=== PATIENT | female | born 1935 | race Caucasian/White ===

== ENCOUNTER 2018-11-19 13:37 | Outpatient (CLI) | payer MEDICARE ==
--- NOTE | 2018-11-19 16:37 | ULT ---
BILATERAL LOWER EXTREMITY VENOUS DOPPLER ULTRASOUND: Date: 11/19/18 HISTORY: Bilateral lower extremity edema. History of deep venous thrombosis on the left and superficial thromb us on the right less than a year ago. TECHNIQUE: Lopez scale ultrasound with color flow and spectral Doppler imaging of the deep venous systems of the lower extremities was performed bilaterally. FINDINGS: There is absence of compression with partial flow due to nonocclusive thrombosis in the right mid and distal femoral vein, and popliteal vein, trifurcation, as well as the right peroneal vein. There is good flow, compression, and augmentation noted in the deep veins of the left lower extremity . IMPRESSION: 1. Nonocclusive deep venous thrombosis of the right lower extremity. 2. No evidence of deep venous thrombosis in the left lower extremity. Results given to Dr. Amandeep Robbins at 1435 hours by the draw hand, Kierra Rodriguez. CODE CR. POS: OFF
== END 2018-11-19 13:38 | disposition home or self-care (01) ==
LOC: NAV ULT 13:37
PROVIDERS: ATTEND Internal Medicine
DX: I82.4Z1 Acute embolism and thrombosis of unspecified deep veins of right distal lower extremity (principal)
CPT/HCPCS: 93970

== ENCOUNTER 2019-01-06 12:23 | Outpatient (CLI) | payer MEDICARE ==
--- NOTE | 2019-01-06 14:07 | ULT ---
RIGHT LOWER EXTREMITY VENOUS DOPPLER: 01/06/19 HISTORY: Recurrent deep venous thrombosis. COMPARISON: Venous ultrasound from October 2018. Real time blair scale, color Doppler and spectral analysis right lower extremity venous system was per formed. The common femoral, femoral, proximal portions of the greater saphenous and deep femoral vein s as well as a popliteal and posterior tibial veins were interrogated. There is partial occlusion thrombus in the popliteal vein. The remainder of the veins appear patent. There is superficial thrombus within the superficial veins of the calf. IMPRESSION: 1. Partially occlusive deep venous thrombosis of popliteal vein. 2. Superficial thrombophlebitis of the superficial calf veins. 3. The ordering physician is notified via the technologist. POS: HOME
== END 2019-01-06 12:24 | disposition home or self-care (01) ==
LOC: NAV ULT 12:23
PROVIDERS: ATTEND Internal Medicine
DX: I82.431 Acute embolism and thrombosis of right popliteal vein (principal)

== ENCOUNTER 2019-02-15 10:47 | Emergency (ER) | payer MEDICARE ==
[~2019-02-15 10:47] MED LIST: Iopamidol 370 76% 100 ML VIAL ONE
[2019-02-15 11:44] LABS: #Eosinphils 0.1 thou/uL (0.0-0.7); #Lymphocytes 0.9 thou/uL (1.20-3.40); #Monocytes 0.9 thou/uL (0.11-0.59); %Basophils 0.3 % (0.0-1.0); %Eosinophils 0.8 % (0.0-10.0); %Monocytes 11.2 % (0.0-10.0); %Neutrophils 76.8 % (42.0-75.0); Hemoglobin 11.8 g/dL (12.0-16.0); Mean Corpuscular HGB CONC 33.8 g/dL (32.0-36.0); Mean Corpuscular Hemoglobin 26.7 pg (27.0-31.0); Mean Platelet Volume 7.1 fL (7.4-10.4); Platelet Count 198 thou/uL (130-400); RBC Distribution Width 14.1 % (11.5-14.5); White Blood Cell (WBC) Count 7.8 thou/uL (4.8-10.8)
[2019-02-15 11:59] LABS: Bilirubin Negative (Negative); Blood, Urine Small (Negative); Clarity Clear (Clear); Glucose, Urine (Dipstick) Negative (Negative); Leukocyte Small (Negative); Nitrite Negative (Negative); Protein, Urine (Dipstick) Trace mg/dL (Neg-Trace)
[2019-02-15 12:04] LABS: ALT (SGPT) 13 U/L (8-55); AST (SGOT) 17 U/L (5-34); Albumin 4.2 g/dL (3.4-4.8); Alkaline Phosphatase 51 U/L (40-150); Anion Gap 17 mmol/L (10-20); BUN (Urea Nitrogen) 17 mg/dL (9.8-20.1); Bilirubin, Total 1.8 mg/dL (0.2-1.2); CK (CPK) 60 U/L (29-168); Calc. Creatinine Clearance 0 mL/min (70-130); Calcium 9.6 mg/dL (7.8-10.44); Carbon Dioxide 24 mmol/L (23-31); Chloride 95 mmol/L (98-107); Estimated GFR-MDRD 50; Globulin 3.2 g/dL (2.4-3.5); Glucose 114 mg/dL (83-110); Lipase 16 U/L (8-78); Protein, Total 7.4 g/dL (6.0-8.3); Sodium 133 mmol/L (136-145)
[2019-02-15 12:09] LABS: Bacteria/HPF 3+ HPF (None Seen); Other Microscopic Description NO; WBC/HPF 21-50 HPF (0-3)
--- NOTE | 2019-02-15 12:19 | RAD ---
PORTABLE CHEST 1 VIEW: Date: 02/15/19 Time: 1136 hours HISTORY: Nausea and vomiting. FINDINGS/IMPRESSION: The heart is enlarged. There is mild elevation of the right hemidiaphragm. No lobar consolidation, pn eumothoraces, hilaria pulmonary edema, or pleural effusions are seen. POS: T[facility]
[2019-02-15 12:23] LABS: Potassium 2.9 mmol/L (3.5-5.1)
--- NOTE | 2019-02-15 13:06 | ULT ---
EXAM: US Gallbladder RUQ CLINICAL HISTORY: Nausea. Vomiting. Fever.. COMPARISON: None. FINDINGS: Pancreas: Majority of the pancreas is obscured by bowel gas. There is a 1.4 x 1.3 x 1.4 cm hypoechoi c focus adjacent to the head of the pancreas. Exact location and etiology is difficult to assess. Liver:Normal echotexture. No hepatic masses or intrahepatic biliary dilatation. The contour of the he patic margin is maintained. Right hepatic lobe measures 14.3 cm. Portal vein: Not assessed Gallbladder: Multiple echogenic foci within the gallbladder compatible with gallstones. Gallbladder w all is not thickened. No pericholecystic fluid. Villa's sign:Negative Bile ducts: Common bile duct diameter 0.6 cm Right kidney: No hydronephrosis. Right kidney measures 10.2 cm cm in length. IMPRESSION: 1. Sonographic evidence of cholelithiasis without sonographic evidence of cholecystitis. 2. Hypoechoic focus adjacent to the head of pancreas, incompletely evaluated. Dedicated pancreas mass protocol CT is CODE T
--- NOTE | 2019-02-15 14:45 | CT ---
Exam: Abdomen CT with and without contrast HISTORY: Mass in the pancreas noted on ultrasound performed earlier today COMPARISON: None TECHNIQUE: Abdomen CT is performed with and without contrast following urogram protocol. Coronal refo rmatted images are submitted for interpretation FINDINGS: Lung bases: Opacity in the right lower lobe may represent scar or atelectasis. Liver: Appropriate enhancement. No enhancing masses. Spleen: Appropriate enhancement Pancreas: Enhancing 1.2 x 1.3 cm mass in the junction of the head and the body of the pancreas, corre sponding to ultrasound finding. Findings are worrisome for a pancreatic neoplasm. Consider GI consultation for possible endoscopic ultrasound. Adrenal glands: Symmetric enhancement Lymph nodes: No gastrohepatic, retrocrural or periportal lymphadenopathy Portal vein: Patent Gallbladder: Multiple gallstones. No CT evidence of cholecystitis Kidneys: Symmetric enhancement of the kidneys. No evidence of obstructive uropathy visualized interna l and extrarenal collecting systems Mesentery: No mass, nephropathy, free air or free fluid Alimentary canal: Limited evaluation due to lack of oral contrast administration. No evidence of kendall l obstruction. The ileocecal junction is normal. Normal caliber appendix. Scattered fecal material in a nondistended/nondilated colon. Abdominal wall: Ventral abdominal wall hernia at the level of the umbilicus containing mesenteric fat is noted Osseous structures: No lytic or blastic lesions in the osseous structures IMPRESSION: Enhancing mass in the junction of the head and body of the pancreas, corresponding to recent ultrasou nd finding. Neoplastic lesion is favored until proven otherwise. Consider GI consultation for possible endoscopic ultrasound.
[2019-02-15] MEDS ORDERED: Potassium Chloride 20 MEQ TAB ONE (15:00)
[2019-02-15] MEDS ORDERED: Cipro 250 MG TAB ONE (15:38)
== END 2019-02-15 15:55 | disposition home or self-care (01) ==
LOC: NAV ERS 10:47
DX: N39.0 Urinary tract infection, site not specified (principal); K86.9 Disease of pancreas, unspecified; R11.2 Nausea with vomiting, unspecified; Z86.718 Personal history of other venous thrombosis and embolism; E03.9 Hypothyroidism, unspecified; Z87.891 Personal history of nicotine dependence; Z79.899 Other long term (current) drug therapy; Z79.01 Long term (current) use of anticoagulants
CPT/HCPCS: 36415; 51701; 71045; 74170; 76705; 80053; 81003; 81015; 82550; 83690; 84484; 85025; 87077; 87086; 87186; 93005; A4353; Q9967

== ENCOUNTER 2020-04-25 11:16 | Outpatient (CLI) | payer MEDICARE ==
--- NOTE | 2020-04-25 11:54 | CT ---
EXAM: CT Upper Ext Rt WO Con DATE: 04/25/2020 11:25 AM INDICATION: 84-year-old female with right arm injury COMPARISON: None. FINDING: There is diffuse osteopenia. No definite displaced fracture is demonstrated. There is moder ate AC joint osteoarthrosis. There is a small focus of ossification seen along the posterior lateral margin of the glenoid measuring 6.5 mm no acute fracture seen involving the glenoid or visual ized scapula. No displaced right-sided rib fracture seen involving the visualized right chest wall. The visualized right lung is clear. No lymphadenopathy is evident. IMPRESSION: 1. No displaced fracture demonstrated. 2. Moderate AC joint osteoarthrosis. 3. Small focus of ossification seen on the posterior lateral margin of the glenoid may reflect a labr al ossicle or a focus of heterotopic ossification within the adjacent glenohumeral joint capsule. Small intra-articular body could have a similar appearance.
== END 2020-04-25 11:17 | disposition home or self-care (01) ==
LOC: NAV CT 11:16
PROVIDERS: ATTEND Internal Medicine
DX: S49.91XA Unspecified injury of right shoulder and upper arm, initial encounter (principal); M19.011 Primary osteoarthritis, right shoulder

== ENCOUNTER 2020-09-25 09:12 | Outpatient (CLI) | payer MEDICARE | END 2020-09-25 09:13 | disposition home or self-care (01) | LOC: NAV RAD 09:12 | PROVIDERS: ATTEND Internal Medicine | DX: M17.12 Unilateral primary osteoarthritis, left knee (principal) ==

== ENCOUNTER 2020-11-08 11:41 | Outpatient (CLI) | payer MEDICARE | END 2020-11-08 11:42 | disposition home or self-care (01) | LOC: NAV RAD 11:41 | PROVIDERS: ATTEND Internal Medicine | DX: J40 Bronchitis, not specified as acute or chronic (principal); J44.9 Chronic obstructive pulmonary disease, unspecified; J98.4 Other disorders of lung | CPT/HCPCS: 71046 ==

== ENCOUNTER 2023-03-04 21:35 | Emergency (ER) | payer MEDICARE, OTHER ==
[2023-03-04 22:51] LABS: #Neutrophils 8.9 thou/uL (1.40-6.50); %Basophils 0.3 % (0.0-1.0); %Eosinophils 0.1 % (0.0-10.0); %Lymphocytes 7.1 % (21.0-51.0); %Monocytes 2.4 % (0.0-10.0); %Neutrophils 90.1 % (42.0-75.0); Hematocrit 38.4 % (36.0-47.0); Hemoglobin 12.5 g/dL (12.0-16.0); Mean Corpuscular HGB CONC 32.5 g/dL (32.0-36.0); Mean Corpuscular Hemoglobin 26.8 pg (27.0-31.0); Mean Corpuscular Volume 82.6 fl (78.0-98.0); Mean Platelet Volume 7.5 fL (7.4-10.4); Platelet Count 177 10x3/uL (130-400); RBC Distribution Width 13.9 % (11.5-14.5); Red Blood Cell (RBC) Count 4.64 mill/uL (4.20-5.40); White Blood Cell (WBC) Count 9.9 10x3/uL (4.8-10.8)
[2023-03-04] MEDS ORDERED: Ondansetron PF 4 MG/2 ML Vial ONE (22:51)
[2023-03-04] MEDS ORDERED: Morphine 4 MG/ML VIAL ONE (22:51)
[2023-03-04 22:52] LABS: #Lymphocytes 0.7 thou/uL (1.20-3.40); #Monocytes 0.2 thou/uL (0.11-0.59)
[2023-03-04 22:53] LABS: INR-International Normal Ratio 1.9; Prothrombin Time 22.6 sec (12.0-14.7)
[2023-03-04 22:54] LABS: PTT 41.6 sec (22.9-36.1)
[2023-03-04 23:02] LABS: Sodium 137 mmol/L (136-145)
[2023-03-04 23:03] LABS: ALT (SGPT) 19 U/L (8-55); AST (SGOT) 26 U/L (5-34); Albumin 4.5 g/dL (3.4-4.8); Alkaline Phosphatase 48 U/L (40-110); BUN (Urea Nitrogen) 19 mg/dL (9.8-20.1); Calc. Creatinine Clearance 0 mL/min (70-130); Calcium 9.7 mg/dL (7.6-10.4); Carbon Dioxide 26 mmol/L (23-31); Chloride 97 mmol/L (98-107); Estimated GFR 54; Glucose 147 mg/dL (83-110); Lipase 22 U/L (8-78); Potassium 2.8 mmol/L (3.5-5.1); Protein, Total 7.5 g/dL (5.8-8.1)
[2023-03-04 23:35] LABS: Bilirubin Negative (Negative); Blood, Urine Negative (Negative); Clarity Clear (Clear); Glucose, Urine (Dipstick) Negative (Negative); Ketone, Urine 15 mg/dL (Negative); Leukocyte Negative (Negative); Nitrite Negative (Negative); Protein, Urine (Dipstick) 30 mg/dL (Neg-Trace); Urobilinogen 0.2 mg/dL (Less than 2); pH, Urine 7.5 (5.0-9.0)
[2023-03-04 23:36] LABS: Bacteria/HPF Rare-Few HPF (None Seen); CAUTI Indications for Culture Pelvic or flank pain; RBC/HPF None Seen HPF (0-3); WBC/HPF None Seen HPF (0-3)
[2023-03-04 23:37] LABS: Urine Culture Reflex No No
[2023-03-05 00:13] LABS: Anion Gap 17 mmol/L (10-20)
[2023-03-05] MEDS ORDERED: Morphine 4 MG/ML VIAL ONE (00:23)
[2023-03-05] MEDS ORDERED: Potassium Chloride 20 MEQ/100 ML PREMIX BAG ONE (01:10)
[2023-03-05] MEDS ORDERED: Dextrose 5 %-0.45 % NaCl 1,000 ML ONE (01:10)
== END 2023-03-05 02:50 | disposition short-term general hospital (02) ==
LOC: NAV ERS 21:35
DX: K46.9 Unspecified abdominal hernia without obstruction or gangrene (principal); N83.202 Unspecified ovarian cyst, left side; K86.9 Disease of pancreas, unspecified; E03.9 Hypothyroidism, unspecified; M19.90 Unspecified osteoarthritis, unspecified site; H40.9 Unspecified glaucoma; Z87.891 Personal history of nicotine dependence; Z79.01 Long term (current) use of anticoagulants; Z79.82 Long term (current) use of aspirin; Z79.899 Other long term (current) drug therapy; Z86.718 Personal history of other venous thrombosis and embolism
CPT/HCPCS: 51701; 74177; 80053; 81001; 83605; 83690; 85025; 85610; 85730; 96374; 96375; 96376; J2270; J2405; J3480; J7042; Q9967

== ENCOUNTER 2023-04-04 11:37 | Outpatient (CLI) | payer OTHER ==
[2023-04-04 12:47] LABS: Follow-up Chemistry Comp? YES; Follow-up Result - Chemistry REPORT FAXED
== END 2023-04-04 11:38 | disposition home or self-care (01) ==
LOC: NAV LAB 11:37
PROVIDERS: ATTEND Family Medicine
DX: I10 Essential (primary) hypertension (principal)
CPT/HCPCS: 36415; 83880

== ENCOUNTER 2023-04-11 09:56 | Emergency (ER) | payer OTHER ==
[2023-04-11] MEDS ORDERED: Ondansetron PF 4 MG/2 ML Vial ONE (10:21)
[2023-04-11] MEDS ORDERED: Sodium Chloride 0.9% 1,000 ML ONE (10:21)
[2023-04-11] MEDS ORDERED: Morphine 4 MG/ML VIAL ONE (10:21)
[2023-04-11 10:41] LABS: #Eosinphils 0.1 thou/uL (0.0-0.7); #Lymphocytes 1.3 thou/uL (1.20-3.40); #Monocytes 0.3 thou/uL (0.11-0.59); #Neutrophils 3.4 thou/uL (1.40-6.50); %Basophils 0.8 % (0.0-1.0); %Eosinophils 1.4 % (0.0-10.0); %Lymphocytes 24.7 % (21.0-51.0); %Monocytes 6.1 % (0.0-10.0); %Neutrophils 66.9 % (42.0-75.0); Hematocrit 37.9 % (36.0-47.0); Hemoglobin 12.4 g/dL (12.0-16.0); Mean Corpuscular HGB CONC 32.7 g/dL (32.0-36.0); Mean Corpuscular Hemoglobin 27.9 pg (27.0-31.0); Mean Corpuscular Volume 85.2 fl (78.0-98.0); Mean Platelet Volume 8.2 fL (7.4-10.4); Platelet Count 147 10x3/uL (130-400); RBC Distribution Width 14.1 % (11.5-14.5); Red Blood Cell (RBC) Count 4.45 mill/uL (4.20-5.40); White Blood Cell (WBC) Count 5.1 10x3/uL (4.8-10.8)
[2023-04-11 10:52] LABS: INR-International Normal Ratio 1.2; Prothrombin Time 16.1 sec (12.0-14.7)
[2023-04-11 10:53] LABS: PTT 35.9 sec (22.9-36.1)
[2023-04-11 11:01] LABS: ALT (SGPT) 16 U/L (8-55); AST (SGOT) 20 U/L (5-34); Albumin 4.6 g/dL (3.4-4.8); Alkaline Phosphatase 52 U/L (40-110); Anion Gap 17 mmol/L (10-20); BUN (Urea Nitrogen) 23 mg/dL (9.8-20.1); Bilirubin, Total 0.8 mg/dL (0.2-1.2); Calc. Creatinine Clearance 0 mL/min (70-130); Calcium 9.7 mg/dL (7.8-10.44); Carbon Dioxide 25 mmol/L (23-31); Chloride 104 mmol/L (98-107); Estimated GFR 53; Globulin 2.9 g/dL (2.4-3.5); Glucose 124 mg/dL (83-110); Potassium 3.7 mmol/L (3.5-5.1); Protein, Total 7.5 g/dL (5.8-8.1); Sodium 142 mmol/L (136-145)
== END 2023-04-11 12:25 | disposition short-term general hospital (02) ==
LOC: NAV ERS 09:56
DX: K56.2 Volvulus (principal); R11.2 Nausea with vomiting, unspecified; E03.9 Hypothyroidism, unspecified; M19.90 Unspecified osteoarthritis, unspecified site; Z87.891 Personal history of nicotine dependence; Z86.718 Personal history of other venous thrombosis and embolism; Z79.1 Long term (current) use of non-steroidal anti-inflammatories (NSAID); Z79.82 Long term (current) use of aspirin; Z79.899 Other long term (current) drug therapy
CPT/HCPCS: 74177; 80053; 83605; 85025; 85610; 85730; 96374; 96375; J2270; J2405; J7050; Q9967

== ENCOUNTER 2023-12-04 16:25 | Outpatient (CLI) | payer OTHER | END 2023-12-04 16:26 | disposition home or self-care (01) | LOC: NAV CT 16:25 | PROVIDERS: ATTEND Family Medicine | DX: R10.30 Lower abdominal pain, unspecified (principal) | CPT/HCPCS: 74019 ==

== ENCOUNTER 2024-01-07 08:52 | Outpatient (CLI) | payer OTHER | END 2024-01-07 08:53 | disposition home or self-care (01) | LOC: NAV CT 08:52 | PROVIDERS: ATTEND Physician Assistant Medical | DX: Z01.818 Encounter for other preprocedural examination (principal); R63.4 Abnormal weight loss; K63.89 Other specified diseases of intestine; R10.9 Unspecified abdominal pain; R15.9 Full incontinence of feces; K80.20 Calculus of gallbladder without cholecystitis without obstruction; N94.89 Other specified conditions associated with female genital organs and menstrual cycle; Z98.890 Other specified postprocedural states | CPT/HCPCS: 36415; 74177; 82565 ==